=== PATIENT | male | born 1970 | race Caucasian/White ===

== ENCOUNTER 2017-09-09 09:56 | Inpatient (IN) | payer OTHER ==
--- NOTE | 2017-09-09 10:28 | EDPHY ---
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 He has continued to have fever chills and myalgias over the past 48 hr worse today. Today symptoms are severe and associated with diarrhea and vomiting in addition to the nausea. Mild associated headache but no stiffness in his neck. No skin rash[place] did not have malaria prophylaxis, did have exposure to fresh water and insects. Today symptoms are not better with Tylenol last taken at 4:30 a.m.. REVIEW OF SYSTEMS: Eye: no change in vision, no pain with extraocular motion ENT: Very mild sore throat but no earache, no sinus pain. Cardiac: no chest pain or syncope Pulmonary: no cough or SOB Abdomen: HPI no abdominal pain Musculoskeletal: No leg swelling or neck stiffness Skin: no rash Neuro: HPI Constitutional: HPI : no urinary symptoms A comprehensive 10 point review of systems is otherwise negative aside from elements mentioned in the history of present illness. 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 Social history: Travel as outlined above. Primary care is [facility] General Appearance: Alert and conversant, cooperative. Eyes: No scleral icterus. Extraocular motion intact without severe pain on movement. ENT, Mouth: Normal mucous membranes. Dry mucous membranes. Respiratory: Normal respiratory effort, breath sounds equal, lungs are clear to auscultation. Cardiovascular: Regular rate and rhythm. Gastrointestinal: Abdomen is soft and non tender. Neurological: Alert, face symmetric, normal motor and sensory in extremities. Speech is fluent. Answers questions appropriately. Skin: Warm and dry, no rashes. Musculoskeletal: No neck stiffness with normal range of motion, no meningeal signs. Psychiatric: Not agitated. Emergency Department course/MDM: Differential broad includes but not limited to gastroenteritis, malaria, meningitis, dengue, typhoid, endocarditis. Normal saline 2 L IV, Zofran 4 mg IV, oral acetaminophen for fever. Malaria smear, CBC chemistry and liver function test, blood culture, telephone consultation with Infectious Disease. 1150: Labs reviewed: Platelet count 123, white blood cell count 10, hematocrit 40, sodium 133. Bilirubin 1.5 mostly unconjugated. Urine negative for infection and malaria smear pending at this time. Call is placed to Dr. Elizabeth Acevedo from Infectious Disease; 1202. 1205: Curtis to see patient in the ER, plan discussed with patient and family. 1256: preliminary malaria from lab is negative. 1410: Ceftriaxone 2 g IV and Levaquin [address] Acevedo. I think it is unlikely that he has meningitis or encephalitis. His did describe him as being delirious. His mental status appeared clear to me during the times I interviewed him. Smoking Status: Never smoked Constitutional: Initial Vital Signs Temperature (C) 39.4 C H 09/09/17 10:07 Heart Rate 134 H 09/09/17 10:07 Respiratory Rate 28 H 09/09/17 10:07 Blood Pressure 150/87 H 09/09/17 10:07 O2 Sat (%) 91 L 09/09/17 10:07 O2 Delivery Mode Room Air Allergies/Adverse Reactions: No Known Allergies Allergy (Unverified 09/09/17 10:06) Home Medications: Medication Instructions Recorded Acetaminophen [Tylenol 325mg (*)] 650 mg PO Q6 PRN 09/09/17 Aspirin [Aspirin 81mg (*)] 81 mg PO DAILY 09/09/17 Atorvastatin Calcium [Lipitor 40 40 mg PO DAILY 09/09/17 mg (*)] Ibuprofen [Motrin (*)] 200 mg PO Q6 PRN 09/09/17 Losartan Potassium [Cozaar 50 mg 50 mg PO DAILY 09/09/17 (*)] Metoprolol Succinate 50 mg PO HS 09/09/17 Medical Decision Making - Diagnostics Imaging Results: Imaging Impressions Chest X-Ray 09/09/17 12:57 Impression: Moderate underlying bronchitis. Mild atelectasis or early infiltrate right lower lobe. Minimal bilateral pleural effusion. Imaging: I viewed and interpreted images myself Differential Diagnosis: Differential extensive includes but not limited to UTI, pneumonia, meningitis, sepsis, acquired tropical disease. Consult/Admit Bed Type: [place] [id number] - Data Points Laboratory Results: Laboratory Results 09/09/17 10:20 09/09/17 10:20 09/09/17 09/09/17 09/09/17 13:44 11:25 10:20 WBC RBC Hgb Hct MCV MCH MCHC RDW Plt Count MPV Neut % (Auto) Lymph % (Auto) [place] % (Auto) Eos % (Auto) Baso % (Auto) Nucleat RBC Rel Count Absolute Neuts (auto) Absolute Lymphs (auto) Absolute Monos (auto) Absolute Eos (auto) Absolute Basos (auto) Absolute Nucleated RBC Immature Gran % Immature Gran # Platelet Estimate Sodium Potassium Chloride Carbon Dioxide Anion Gap BUN Creatinine Estimated GFR Glucose Calcium Total Bilirubin Conjugated Bilirubin Unconjugated Bilirubin AST ALT Alkaline Phosphatase Total Protein Albumin Urine Color YELLOW Urine Appearance CLEAR Urine pH 6.0 (5.0-7.5) Ur Specific [place] 1.017 (1.002-1.030) Urine Protein 1+ H (NEGATIVE) Urine Ketones NEGATIVE (NEGATIVE) Urine Blood 1+ H (NEGATIVE) Urine Nitrate NEGATIVE (NEGATIVE) Urine Bilirubin NEGATIVE (NEGATIVE) Urine Urobilinogen 2.0 EU H EU (0.2-1.0) Ur Leukocyte Esterase NEGATIVE (NEGATIVE) Urine RBC 1-3 /hpf /hpf (0-3) Urine WBC 1-3 /hpf /hpf (0-3) Ur Epithelial Cells NONE SEEN /lpf /lpf (NONE-1+) Urine Mucus TRACE /lpf /lpf (NONE-1+) Urine Glucose 1+ H (NEGATIVE) Dengue Fever IgG Ab Pending Dengue Fever IgM Ab Pending Dengue Fever Interp Pending Leptospira Antibody Pending Malaria Smear Pending Malaria Sm Path Review Pending Is Patient Pending [place] Region Travel Pending Z[place] Clin Signs/Symp Pending Zika Virus IgM Ab Pending Miscellaneous Test Pending 09/09/17 09/09/17 10:20 10:20 WBC 10.21 10^3/uL H 10^3/uL (3.80-9.50) RBC 4.62 10^6/uL 10^6/uL (4.40-6.38) Hgb 14.2 g/dL g/dL (13.7-17.5) Hct 40.8 % % (40.0-51.0) MCV 88.3 fL fL (81.5-99.8) MCH 30.7 pg pg (27.9-34.1) MCHC 34.8 g/dL g/dL (32.4-36.7) RDW 12.7 % % (11.5-15.2) Plt Count 123 10^3/uL L 10^3/uL (150-400) MPV 10.9 fL fL (8.7-11.7) Neut % (Auto) 97.4 % H % (39.3-74.2) Lymph % (Auto) 1.5 % L % (15.0-45.0) [place] % (Auto) 0.5 % L % (4.5-13.0) Eos % (Auto) 0.0 % L % (0.6-7.6) Baso % (Auto) 0.2 % L % (0.3-1.7) Nucleat RBC Rel Count 0.0 % % (0.0-0.2) Absolute Neuts (auto) 9.95 10^3/uL H 10^3/uL (1.70-6.50) Absolute Lymphs (auto) 0.15 10^3/uL L 10^3/uL (1.00-3.00) Absolute Monos (auto) 0.05 10^3/uL L 10^3/uL (0.30-0.80) Absolute Eos (auto) 0.00 10^3/uL L 10^3/uL (0.03-0.40) Absolute Basos (auto) 0.02 10^3/uL 10^3/uL (0.02-0.10) Absolute Nucleated RBC 0.00 10^3/uL 10^3/uL (0-0.01) Immature Gran % 0.4 % % (0.0-1.1) Immature Gran # 0.04 10^3/uL 10^3/uL (0.00-0.10) Platelet Estimate TNP Sodium 133 mEq/L L mEq/L (135-145) Potassium 3.6 mEq/L mEq/L (3.3-5.0) Chloride 95 mEq/L L mEq/L (97-110) Carbon Dioxide 23 mEq/l mEq/l (22-31) Anion Gap 15 mEq/L mEq/L (8-16) BUN 14 mg/dL mg/dL (7-23) Creatinine 0.9 mg/dL mg/dL (0.7-1.3) Estimated GFR > 60 Glucose 166 mg/dL H mg/dL (70-100) Calcium 9.1 mg/dL mg/dL (8.5-10.4) Total Bilirubin 1.5 mg/dL H mg/dL (0.1-1.4) Conjugated Bilirubin 0.5 mg/dL mg/dL (0.0-0.5) Unconjugated Bilirubin 1.0 mg/dL mg/dL (0.0-1.1) AST 31 IU/L IU/L (17-59) ALT 48 IU/L IU/L (21-72) Alkaline Phosphatase 59 IU/L IU/L (38-126) Total Protein 7.0 g/dL g/dL (6.3-8.2) Albumin 3.9 g/dL g/dL (3.5-5.0) Urine Color Urine Appearance Urine pH Ur Specific [place] Urine Protein Urine Ketones Urine Blood Urine Nitrate Urine Bilirubin Urine Urobilinogen Ur Leukocyte Esterase Urine RBC Urine WBC Ur Epithelial Cells Urine Mucus Urine Glucose Dengue Fever IgG Ab Dengue Fever IgM Ab Dengue Fever Interp Leptospira Antibody Malaria Smear Malaria Sm Path Review Is Patient Zika Region Travel Zika Clin Signs/Symp Zika Virus IgM Ab Miscellaneous Test Medications Given: Levofloxacin/Dextrose (Levaquin 750 Mg (Premix)) 150 mls @ 100 mls/hr IV EDNOW ONE PRN Reason: Protocol Stop: 09/09/17 15:19 Last Admin: 09/09/17 14:07 Dose: 150 mls Discontinued Medications Acetaminophen (Tylenol) 650 mg PO EDNOW ONE Stop: 09/09/17 10:44 Last Admin: 09/09/17 10:50 Dose: 650 mg Sodium Chloride (Ns) 1,000 mls @ 0 mls/hr IV EDNOW ONE; Wide Open PRN Reason: Protocol Stop: 09/09/17 10:44 Last Admin: 09/09/17 10:49 Dose: 1,000 mls Sodium Chloride (Ns) 1,000 mls @ 0 mls/hr IV EDNOW ONE; Wide Open PRN Reason: Protocol Stop: 09/09/17 10:44 Last Admin: 09/09/17 10:50 Dose: 1,000 mls Ondansetron HCl (Zofran) 4 mg IVP EDNOW ONE Stop: 09/09/17 10:44 Last Admin: 09/09/17 10:50 Dose: 4 mg Departure - Departure Disposition: [facility] In[facility] Acute Clinical Impression: Fever Qualifiers: Fever type: unspecified Qualified Code(s): R50.9 - Fever, unspecified Condition: Good
[2017-09-09] MEDS ORDERED: ACETAMINOPHEN 325 MG TAB PO ONE (10:43)
[2017-09-09] MEDS ORDERED: ONDANSETRON 4 MG/2 ML VIAL IVP ONE (10:43)
[2017-09-09] MEDS ORDERED: NS 1,000 ML IV ONE ×2 (10:43)
[2017-09-09 11:39] LABS: PLATELET COUNT 123 10^3/uL (150-400)
[2017-09-09] MEDS ORDERED: ONDANSETRON 4 MG/2 ML VIAL IVP PRN (13:53)
[2017-09-09] MEDS ORDERED: ONDANSETRON DISINTEGRATING 4 MG TAB PO PRN (13:53)
[2017-09-09] MEDS ORDERED: IBUPROFEN 200 MG TAB PO PRN (14:31)
[2017-09-09] MEDS ORDERED: LORazepam 2 MG/ML INJ IVP PRN (14:42)
[2017-09-09] MEDS ORDERED: ACETAMINOPHEN 325 MG TAB PO PRN (14:42)
[2017-09-09] MEDS ORDERED: LORazepam 0.5 MG TAB PO PRN (14:42)
[2017-09-09] MEDS ORDERED: PROMETHAZINE HCL 25 MG/ML INJ IVP PRN (14:42)
[2017-09-09] MEDS ORDERED: DOXYCYCLINE INJ 100 MG in NS 250 ML IV SCH (15:45)
--- NOTE | 2017-09-09 16:23 | GCON ---
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 HISTORY OF PRESENT ILLNESS: The patient is a 46-year-old, white male with a past medical history inc luding aortic valve replaced in 2009, secondary to endocarditis. He also has a congenitally abnormal aortic valve. 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 On his way back a few days ago, he be emmanuelle noticing increasing fevers, as well as chills. This progressed to fever, chills, and myalgia. Christ agarwal came and sought medical attention. He has taken Tylenol without much improvement. In discussion w ith the patient, he denies any cough or production of sputum. There was no chest pain, pleuritic-typ e chest pain, or angina equivalent. There is no abdominal pain. REVIEW OF SYSTEMS: 10-point review of systems performed is negative with the exception of what is li susan in HPI. PAST MEDICAL HISTORY: Significant for congenital aortic valve and endocarditis. PAST SURGICAL HISTORY: Aortic valve replaced in 2009. SOCIAL HISTORY: No history of tobacco use. Infrequent alcohol use. 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 He is , has excellent family support. FAMILY HISTORY: Noncontributory. MEDICATIONS: Include Tylenol. PHYSICAL EXAMINATION: VITAL SIGNS: Blood pressure is 131/90, pulse is 145, respirations are 36, tem perature 39.4, oxygen saturation 92% on 2 L. GENERAL: He is a well-developed, well-nourished, 46-ye ar-old, white male who is in mild distress. HEENT: Eyes are PERRLA, EOMI. Throat shows no erythema or tonsillar hypertrophy. NECK: Supple. No cervical adenopathy. HEART: Regular rate and rhythm without murmurs, rubs, gallops. LUNGS: Few bibasilar crackles, but no wheeze. ABDOMEN: Soft, nont norah. Bowel sounds are present. EXTREMITIES: No clubbing, cyanosis, or edema. LABORATORY/IMAGING: White count 10.2, hemoglobin 14, hematocrit 40, platelet count is 123. Sodium 1 33, potassium 3.6, chloride 95, CO2 is 23, BUN 14, creatinine 0.9, glucose is 166. Urinalysis is neg ative. Serologies are pending. Chest x-ray shows some evidence of bronchitis and possible early right lower lobe infiltrate. IMPRESSION: 1. Fever and tachycardia, etiology of which is unclear. It is concerning that he is traveled recentl y to [facility]. 2. Mild acute respiratory failure. 3. History of aortic valve replacement in 2009. RECOMMENDATIONS: 1. Agree with panculture. 2. Antibiotics per Infectious Disease. 3. Will check an echocardiogram. 4. Aggressive fluid replacement. 5. DVT and PE prophylaxis. 6. Stress ulcer prophylaxis. /[id number]/MODL
--- NOTE | 2017-09-09 17:25 | ECHO ---
[email or web address] [address] [address] Main: [phone] Fax: Transthoracic Echocardiogram Name: DELMIS LOWERY MR#: [id number] Study Date: 09/09/2017 Study Time: 04:02 PM Date of : 1970 Age: 46 year(s) Height: 172.7 cm (68 in.) Weight: 86.18 kg (190 lb.) BSA: 2 m2 Gender: Male Examination: Echo Indication: Fever/AVR 2009 Image Quality: Contrast: Requested by: Ilir Berry BP: 127 mmHg/87 mmHg Heart Rate: Rhythm: Indication: Fever/AVR 2009 Procedure Staff Motor Equipment Commanding Officer: Mandie Gonzales RDCS Reading Physician: Hema Muñoz MD Requesting Provider: Conclusions: Normal size left ventricle. Global hypercontractility of the left ventricle. The ejection fraction is estimated to be 70-75 %. Mild mitral valve regurgitation is present. The aortic valve is a bioprosthesis. Mild tricuspid regurgitation is present. Mild to moderate pulmonic valve regurgitation. Suggest ROM if clinically indicated to further eval cardiac valves.. Measurements: Chambers Valvular Assessment AV/MV Valvular Assessment TV/PV Normal Normal Normal Name Value Range Name Value Range Name Value Range IVSd (2D): 1.5 cm (0.6 cm-1.1 AV Vmax: 1.60 m/s (1 m/s-1.7 cm) m/s) LVDd (2D): 4.5 cm (4.2 cm-5.9 AV meanP mmHg ( - ) cm) MV E Vmax: 1.77 m/s ( - ) LVDs (2D): 3.3 cm (2.1 cm-4 cm) LVPWd (2D): 1.1 cm (0.6 cm-1 cm) LVEF (2D): 50 (>=54 %) EF Range: 70-75 % Continued Measurements: Chambers Valvular Assessment AV/MV Name Value Name Value LADs Lon.0 cm MV E' Septal: 0.10 m/s Patient: DELMIS LOWERY Study Date: 09/09/2017 Page 1 of 2 04:02 PM LA Area: 22.6 cm2 MV E/E' Septal: 17.20 MV E/E' Lateral: 21.40 Additional Vessels Name Value Ao Ascendin.2 cm Findings: Left Ventricle: Normal size left ventricle. No LV hypertrophy. Global hypercontractility of the left ventricle. The ejection fraction is estimated to be 70-75 %. No regional wall motion abnormality. Right Ventricle: Normal size right ventricle. Left Atrium: The left atrium is normal in size. Right Atrium: The right atrium is normal in size. Possible Chiari's network in right atrium. Mitral Valve: The mitral valve is normal in appearance and function. Mild mitral valve regurgitation is present. Aortic Valve: The aortic valve is a bioprosthesis. AV max PG is 11mmHG. AV mean PG is 6mmHG.. Tricuspid Valve: The tricuspid valve is normal in appearance and function. Mild tricuspid regurgitation is present. Pulmonic Valve: The pulmonic valve is normal in appearance and function. Mild to moderate pulmonic valve regurgitation. Aorta: The aorta is normal. Pericardium: No pericardial effusion. Exam Comments: Suggest ROM if clinically indicated to further eval cardiac valves.. (No Signature Object) Patient: DELMIS LOWERY Study Date: 09/09/2017 Page 2 of 2 04:02 PM [id number]
--- NOTE | 2017-09-09 17:42 | PDGENHP ---
History and Physical - Chief Complaint fever, body aches, confusion - History of Present Illness 46 yo M with PMH of congenitally abnormal aortic valve and endocarditis requiring AVR presenting with c/o fever, body aches, TROY and confusion. 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 he notes that on dion flight home he began developing fevers, chills and body aches. This did not improve with tylenol and his noted today that he also seemed confused and anxious, slow to answer questions. He denies cough or sob, he has not had any n/v/diarrhea. He has not had rash or urinary complaints. He did have exposure to mosquitos and fresh water while in [facility]. History Information - Allergies/Home Medication List Allergies/Adverse Reactions: No Known Allergies Allergy (Unverified 09/09/17 10:06) Home Medications: Acetaminophen [Tylenol 325mg (*)] 650 mg PO Q6 PRN 09/09/17 [Last Taken 09/09/17 ] Aspirin [Aspirin 81mg (*)] 81 mg PO DAILY 09/09/17 [Last Taken 09/09/17] Atorvastatin Calcium [Lipitor 40 mg (*)] 40 mg PO DAILY 09/09/17 [Last Taken ] Ibuprofen [Motrin (*)] 200 mg PO Q6 PRN 09/09/17 [Last Taken 09/09/17] Losartan Potassium [Cozaar 50 mg (*)] 50 mg PO DAILY 09/09/17 [Last Taken ] Metoprolol Succinate 50 mg PO HS 09/09/17 [Last Taken 09/08/17] I have personally reviewed and updated: family history, medical history, social history, surgical history - Past Medical History hypertension, hyperlipidemia Additional medical history: endocarditis and congenital valvular heart disease - Surgical History Additional surgical history: aortic valve replacement - Family History Positive for: non-pertinent - Social History Smoking Status: Never smoked Alcohol Use: Occasionally Drug Use: None Review of Systems Review of Systems: ROS: 10pt was reviewed & negative except for what was stated in HPI & below Physical Exam Physical Exam: Temp Pulse Resp BP Pulse Ox 37.9 C 145 H 47 H 130/91 H 96 09/09/17 16:22 09/09/17 17:00 09/09/17 17:00 09/09/17 17:00 09/09/17 17:00 O2 (L/minute) 2 Constitutional: appears nourished, uncomfortable Eyes: PERRL, anicteric sclera Ears, Nose, Mouth, Throat: moist mucous membranes, hearing normal Cardiovascular: systolic murmur, tachycardia Respiratory: no respiratory distress, no rales or rhonchi Gastrointestinal: normoactive bowel sounds, soft, non-tender abdomen Genitourinary: no bladder tenderness Skin: warm, normal color Musculoskeletal: full muscle strength, no muscle tenderness Neurologic: AAOx3 Psychiatric: encephalopathic, anxious Lab Data & Imaging Review 09/09/17 10:20 09/09/17 10:20 WBC 10.21 10^3/uL (3.80-9.50) H 09/09/17 10:20 RBC 4.62 10^6/uL (4.40-6.38) 09/09/17 10:20 Hgb 14.2 g/dL (13.7-17.5) 09/09/17 10:20 Hct 40.8 % (40.0-51.0) 09/09/17 10:20 MCV 88.3 fL (81.5-99.8) 09/09/17 10:20 MCH 30.7 pg (27.9-34.1) 09/09/17 10:20 MCHC 34.8 g/dL (32.4-36.7) 09/09/17 10:20 RDW 12.7 % (11.5-15.2) 09/09/17 10:20 Plt Count 123 10^3/uL (150-400) L 09/09/17 10:20 MPV 10.9 fL (8.7-11.7) 09/09/17 10:20 Neut % (Auto) 97.4 % (39.3-74.2) H 09/09/17 10:20 Lymph % (Auto) 1.5 % (15.0-45.0) L 09/09/17 10:20 [place] % (Auto) 0.5 % (4.5-13.0) L 09/09/17 10:20 Eos % (Auto) 0.0 % (0.6-7.6) L 09/09/17 10:20 Baso % (Auto) 0.2 % (0.3-1.7) L 09/09/17 10:20 Nucleat RBC Rel Count 0.0 % (0.0-0.2) 09/09/17 10:20 Absolute Neuts (auto) 9.95 10^3/uL (1.70-6.50) H 09/09/17 10:20 Absolute Lymphs (auto) 0.15 10^3/uL (1.00-3.00) L 09/09/17 10:20 Absolute Monos (auto) 0.05 10^3/uL (0.30-0.80) L 09/09/17 10:20 Absolute Eos (auto) 0.00 10^3/uL (0.03-0.40) L 09/09/17 10:20 Absolute Basos (auto) 0.02 10^3/uL (0.02-0.10) 09/09/17 10:20 Absolute Nucleated RBC 0.00 10^3/uL (0-0.01) 09/09/17 10:20 Immature Gran % 0.4 % (0.0-1.1) 09/09/17 10:20 Immature Gran # 0.04 10^3/uL (0.00-0.10) 09/09/17 10:20 Platelet Estimate TNP 09/09/17 10:20 VBG Lactic Acid 1.6 mmol/L (0.7-2.1) 09/09/17 14:00 Sodium 133 mEq/L (135-145) L 09/09/17 10:20 Potassium 3.6 mEq/L (3.3-5.0) 09/09/17 10:20 Chloride 95 mEq/L (97-110) L 09/09/17 10:20 Carbon Dioxide 23 mEq/l (22-31) 09/09/17 10:20 Anion Gap 15 mEq/L (8-16) 09/09/17 10:20 BUN 14 mg/dL (7-23) 09/09/17 10:20 Creatinine 0.9 mg/dL (0.7-1.3) 09/09/17 10:20 Estimated GFR > 60 09/09/17 10:20 Glucose 166 mg/dL (70-100) H 09/09/17 10:20 Calcium 9.1 mg/dL (8.5-10.4) 09/09/17 10:20 Total Bilirubin 1.5 mg/dL (0.1-1.4) H 09/09/17 10:20 Conjugated Bilirubin 0.5 mg/dL (0.0-0.5) 09/09/17 10:20 Unconjugated Bilirubin 1.0 mg/dL (0.0-1.1) 09/09/17 10:20 AST 31 IU/L (17-59) 09/09/17 10:20 ALT 48 IU/L (21-72) 09/09/17 10:20 Alkaline Phosphatase 59 IU/L (38-126) 09/09/17 10:20 Total Protein 7.0 g/dL (6.3-8.2) 09/09/17 10:20 Albumin 3.9 g/dL (3.5-5.0) 09/09/17 10:20 Urine Color YELLOW 09/09/17 11:25 Urine Appearance CLEAR 09/09/17 11:25 Urine pH 6.0 (5.0-7.5) 09/09/17 11:25 Ur Specific [place] 1.017 (1.002-1.030) 09/09/17 11:25 Urine Protein 1+ (NEGATIVE) H 09/09/17 11:25 Urine Ketones NEGATIVE (NEGATIVE) 09/09/17 11:25 Urine Blood 1+ (NEGATIVE) H 09/09/17 11:25 Urine Nitrate NEGATIVE (NEGATIVE) 09/09/17 11:25 Urine Bilirubin NEGATIVE (NEGATIVE) 09/09/17 11:25 Urine Urobilinogen 2.0 EU (0.2-1.0) H 09/09/17 11:25 Ur Leukocyte Esterase NEGATIVE (NEGATIVE) 09/09/17 11:25 Urine RBC 1-3 /hpf (0-3) 09/09/17 11:25 Urine WBC 1-3 /hpf (0-3) 09/09/17 11:25 Ur Epithelial Cells NONE SEEN /lpf (NONE-1+) 09/09/17 11:25 Urine Mucus TRACE /lpf (NONE-1+) 09/09/17 11:25 Urine Glucose 1+ (NEGATIVE) H 09/09/17 11:25 Visualized and Interpreted Chest x-ray results: Yes Chest X-Ray results: infiltrate (rll versus atlectasis), effusion (slight bll) EKG additional interpertation: tele noted with ST Assessment & Plan Assessment: Fever (Acute) 46 yo M with hx of htn, hld, endocarditis s/p AVR admitted with fever/sepsis following travel to [facility] # sepsis: meeting SIRS criteria with fever, tachcardia, tachypnea, mid elevated WBC. Source unclear but concerns for tropical mosquito borne illnesses and appreciate ID input--viral studies including Dengue, Zika pending. Resp PCR panel negative. Leptospira, legionella, blood cultures and malaria smear pending. HD stable though tachycardic and monitoring in IcU. # pneumonia: RLL infiltrate and small bilateral pleural effusion, started on levofloxacin with w/u pending as above # acute encephalopathy: patient having difficulty answering questions but when he does he is appropriate, he feels this is largely driven by anxiety. Does not have clear meningeal signs and other than confusion only c/o TROY concerning for meningitis. Will discuss with ID but low threshold for LP and empiric tx for meningitis #hx of endocarditis/AVR: echo without clear vegetations, blood cultures pending #HTN, HLD: will start home meds when more stable # IP status, patient critically ill requiring close monitoring in ICU > 40 min of critical care time spent in care of this patient in eval/mgmt of above
[2017-09-09 18:14] LABS: MALARIAL PREP NONE SEEN (NONE SEEN)
[2017-09-09] MEDS ORDERED: ALTEPLASE 2 MG VIAL IVP PRN (18:38)
--- NOTE | 2017-09-09 18:40 | GCON ---
[f rep st] CONSULTATION INFECTIOUS DISEASE CONSULTATION DATE OF CONSULTATION: 09/09/2017 HISTORY OF PRESENT ILLNESS: This is a healthy 46-year-old male with a history of streptococcal aortic valve endocarditis in 2004, presenting as CVA, who had prolonged IV antibiotic therapy and subsequent aortic valve replacement in 2009 , who was in his usual state of health until 09/06/2017, when he returned from [facility]. The patient has been febrile and complaining of myalgias. He has a mild associated headache, congestion, sore throat. They were monitoring at home until patient became mildly confused, therefore, presented to the emergency room this morning. The patient travels to [facility] over 20 times yearly. They have a lodge there in which people stay and learn about the wildlife and [facility]. He was there for 1 week preceding 09/06/2017, and his last travel was 08/06 through 08/15/2017. He does endorse mosquito bites and does not sleep under mosquito nets nor does he take malaria prophylaxis. The nearest town is [place] in [facility]. He does have fresh water contact while there including: fresh water swimming pool, a nearby river, and showers are spring fed. Mild to moderate bitemporal headache is 6/10 - not as severe as headache when he had with his stroke was a 10/10. Patient does have contact with birds, last in May when he was tagging them without the use of gloves. He denies any animal bites. No tick exposure. Specifically, he denies joint swelling, rash, nausea, vomiting, and diarrhea. No known sick contacts. PAST MEDICAL AND SURGICAL HISTORY: Aortic valve replacement 2009. He has a bovine valve. No chronic anticoagulation. 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 Hyperlipidemia. SOCIAL HISTORY: He has 2 children, in 1st grade and preschool. He is originally from [place], [place], grew up in [place], [place]. He is . No tobacco. Minimal alcohol. No marijuana. FAMILY HISTORY: Positive for breast cancer in his sister. Colon cancer in his father and reportedly multiple people with aortic valve disease. REVIEW OF SYSTEMS: A complete 10-point review of systems was performed and is negative except as mentioned in the HPI. Denies GI symptoms PHYSICAL EXAM: VITAL SIGNS: The patient's blood pressure is 142/90, heart rate 135, respiratory rate 18, saturation 90% on room air, 96% on 2 L. Temperature is 39.4. GENERAL: This is a mildly distressed male, lying in bed, mildly tachypneic. HEENT: He has conjunctival injection bilaterally. Pupils are reactive. Extraocular muscles are intact. Facial cranial nerves are also intact. Dentition is excellent. Moist mucous membranes. No oral ulcerations. NECK: No lymphadenopathy. No meningismus. Full range of motion of the neck. CARDIOVASCULAR: Tachycardic. No murmurs detected. CHEST: Clear to auscultation bilaterally. ABDOMEN: Soft, nontender. Bowel sounds are present. EXTREMITIES: No clubbing, cyanosis, or edema. No joint swelling. No petechiae. No peripheral stigmata of endocarditis. SKIN: Full skin exam was performed without rashes noted. NEUROLOGICAL: His motor was intact bilaterally and he was following commands. He was disoriented to date and location. He did identify his appropriately. LABORATORY: White count 10.2, with 123 platelets, hematocrit of 40, 97% neutrophils. Creatinine 0.7. Total bilirubin 1.5, AST 31, ALT 48, albumin 3.9. Blood cultures are collected and are pending. Chest x-ray was personally reviewed by me and had a suggestion of an early infiltrate in the right lower lobe. Resp PCR panel negative. 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 Query if illness related to travel vs. AVR. Short incubation period would be more typical for viral illnesses, typhoid and leptospirosis would be consideration. Potential viral etiologies dengue, chikungunya, and Zika. Lack of rash and LFT abnormalities makes viral illness less likely. Quick onset of illness after travel seems less typical for malaria, but multiple rounds of travel to same are makes this a little more complicated. Elevated bilirubin and mild conjunctival injection/defecation and water exposure raises the possibility of leptospirosis. Notably, lack of GI symptoms certainly does not completely exclude typhoid. Bacterial meningitis was considered, but my impression was mild delirium at the time of my exam, but no meningismus, and only moderate headache and no focal neuro deficits, therefore, seemed less likely. Also could consider pneumonia, although his illness is fairly severe for a community-acquired pneumonia, fresh water exposure also brings up consideration of Legionella. The patient does have remote history of exposure to birds in May, which would be to long of incubation period for psittacosis. Finally he as AVR & h/o endocarditis therefore PVE is a possibility - tachycardia make appreciate of murmur difficult , but no peripheral stigmata of endocarditis. Resp panel PCR negative. DIAGNOSTIC EVALUATION: 1. Would send blood cultures, malaria smear, Zika, chikungunya, leptospirosis, and dengue antibody. 2. We will continue to monitor mental status and neurologic symptoms to assess the need for CT/lumbar puncture. At this point would hold off. This was extensively discussed with his at the bedside. 3. With water exposure, also would consider Legionella, and we will send Legionella urinary antigen. To cover for the above would include: 1. Levofloxacin 750 mg IV daily, which would cover community-acquired pneumonia , typhoid, Legionella. Further, would add doxycycline for coverage of leptospirosis 2. Obtain TTE. Will start vancomycin 1.25 gm IV q12 hours for empiric coverage for PVE until more info known 2. We will await additional diagnostics and adjust antibiotics appropriately. Time was 80 minutes with greater than 50% of the time spent with education and counseling regarding differential diagnosis of potential illness and planned antibiotic therapy. Care was coordinated with the emergency room doctor and hospitalist. Thank you for this consultation. We will continue to see the patient on a daily basis. /[id number]/MODL MTDD
[2017-09-09] MEDS: ACETAMINOPHEN 325 MG TAB PO PRN (19:05)
[2017-09-09] MEDS ORDERED: VANCOMYCIN 1.25 GM in NS 250 ML IV SCH (19:30)
--- NOTE | 2017-09-09 20:26 | PDRADPN ---
Radiology Procedure Note Date of Procedure: 09/09/17 Radiologist: Angelo Doran Anesthesia: Local (Specify) Pre-op Diagnosis: infection Post-op Diagnosis: same Indication: access for icu/abx Procedure: LUE DL PICC Finding(s): 46cm DL picc placed via patent basilic vein. ok to use. Inf/Abcess present in the surg proc area at time of surgery?: No EBL: Minimal Complications: none
[2017-09-09 21:06] LABS: PLATELET COUNT 105 10^3/uL (150-400)
[2017-09-09] MEDS: METOPROLOL SUCCINATE XR 50 MG TAB PO SCH (21:47)
--- NOTE | 2017-09-09 22:10 | PCMIDPN ---
Assessment/Plan: Sepsis due to MSSA bacteremia Blood cultures positive for MSSA --DC vancomycin --DC levofloxacin --DC doxycycline --Start Nafcillin 2gm IV q4h --Head CT --Patient will need ROM Discussed with hospitalist. Objective: Vital Signs Temp Pulse Resp BP Pulse Ox 39.2 C H 102 H 28 H 129/82 H 95 09/09/17 21:00 09/09/17 21:47 09/09/17 21:00 09/09/17 21:47 09/09/17 21:00 Microbiology 09/09/17 14:15 Respiratory Panel (PCR) - Final Nasal, Sinus - Swab No Organism Detected Laboratory Results 09/09/17 20:40 09/08/17 09/09/17 09/10/17 05:59 05:59 05:59 Intake Total 3848 Balance 3848 ICD10 Worksheet Patient Problems: Problems Problem Status Onset Fever Acute
[2017-09-09] MEDS: NAFCILLIN SODIUM 2 GM in D5W 100 ML IV SCH (22:20)
[2017-09-10] MEDS: ACETAMINOPHEN 325 MG TAB PO PRN ×3 (00:22→19:46)
[2017-09-10] MEDS: NAFCILLIN SODIUM 2 GM in D5W 100 ML IV SCH ×6 (01:47→21:22)
[2017-09-10] MEDS: NS 1,000 ML IV SCH ×2 (01:47→16:43)
[2017-09-10 05:37] LABS: PLATELET COUNT 103 10^3/uL (150-400)
[2017-09-10] MEDS: oxyCODONE IR 5 MG TAB PO PRN (06:47)
[2017-09-10] MEDS ORDERED: NS 1,000 ML IV ONE (08:27)
--- NOTE | 2017-09-10 08:57 | PDCARTEE ---
CAR AARON CAR AARON: pt for aaron to look for infectious source / asses vhd etc
[2017-09-10] MEDS ORDERED: PROPOFOL 200 MG/20 ML VIAL ONE (08:59)
[2017-09-10] MEDS ORDERED: ASPIRIN 81 MG CHEWABLE TAB PO SCH (09:00)
--- NOTE | 2017-09-10 09:22 | PDANEPAE ---
ANE History of Present Illness ROM S/P AVR 2009 ANE Past Medical History - Cardiovascular History Hx Hypertension: Yes Hx Arrhythmias: No Hx Chest Pain: No Hx Coronary Artery / Peripheral Vascular Disease: No Hx CHF / Valvular Disease: Yes Hx Palpitations: No - Pulmonary History Hx COPD: No Hx Asthma/Reactive Airway Disease: No Hx Recent Upper Respiratory Infection: Yes Hx Oxygen in Use at Home: No Hx Sleep Apnea: No - Endocrine History Hx Diabetes: No Hypothyroid: No Hyperthyroid: No Obesity: no - Renal History Hx Renal Disorders: No - Liver History Hx Hepatic Disorders: No - Chronic Pain History Chronic Pain: No - Surgical History Prior Surgeries: AVR ANE Review of Systems Review of systems is: negative Review of Systems: - Exercise capacity METS (RN): 4 METS ANE Patient History - Allergies Allergies/Adverse Reactions: No Known Allergies Allergy (Unverified 09/09/17 10:06) - Home Medications Home Medications: Acetaminophen [Tylenol 325mg (*)] 650 mg PO Q6 PRN 09/09/17 [Last Taken 09/09/17 ] Aspirin [Aspirin 81mg (*)] 81 mg PO DAILY 09/09/17 [Last Taken 09/09/17] Atorvastatin Calcium [Lipitor 40 mg (*)] 40 mg PO DAILY 09/09/17 [Last Taken ] Ibuprofen [Motrin (*)] 200 mg PO Q6 PRN 09/09/17 [Last Taken 09/09/17] Losartan Potassium [Cozaar 50 mg (*)] 50 mg PO DAILY 09/09/17 [Last Taken ] Metoprolol Succinate 50 mg PO HS 09/09/17 [Last Taken 09/08/17] - NPO status NPO Status: no food or drink >8 hours - Anes Hx Anes Hx: no prior problems - Smoking Hx Smoking Status: Never smoked - Alcohol Use Alcohol Use: Occasionally - Family Anes Hx Family Anes Hx: none ANE Labs/Vital Signs - Labs Result Diagrams: 09/10/17 04:45 09/10/17 04:45 - Vital Signs Blood Pressure: 114/75 Heart Rate: 100 Respiratory Rate: 25 O2 Sat (%): 99 Height: 172.72 cm Weight: 86.183 kg ANE Physical Exam - Airway Neck exam: FROM Mallampati Score: Class 2 Mouth exam: normal dental/mouth exam - Pulmonary Pulmonary: no rales or rhonchi, other (Resp rate 18 to 22) - Cardiovascular Cardiovascular: systolic murmur, tachycardia ANE Anesthesia Plan Anesthesia Plan: GA with mask Total IV Anesthesia: Yes
--- NOTE | 2017-09-10 09:57 | PDINTPN ---
[employer] Field Examiner Progress Note Assessment/Plan: Assessment: MSSA Bacteremia: Multiple blood cultures positive yesterday. Has received Levaquin, doxycycline, Vanco. Now on high-dose Nafcillin. WBC still high but down a bit. Temp down but still febrile. Headache: CT negative yesterday, but TROY is worse today. Could be due to sepsis , fluid resuscitation, caffeine withdrawal. Bacterial mycotic aneurism/abscess, meningitis possible, but has no focal symptoms or meningeal signs. Elevated Transaminases: Mildly elevated. No symptoms. Likely due to bacteremia. Hypokalemia: Mild Plan: ROM, then general diet. Probably proceed with MRI brain. Continue Nafcillin. Repeat blood cultures tomorrow. Replace K+, follow LFTs 09/10/17 11:18 Subjective: C/O increase in frontal TROY. No N/V, pain. Thirsty. Objective: Vital Signs Temp Pulse Resp BP Pulse Ox 38.1 C 100 25 H 114/75 99 09/10/17 07:00 09/10/17 09:43 09/10/17 09:43 09/10/17 09:43 09/10/17 09:43 Microbiology 09/09/17 14:15 Respiratory Panel (PCR) - Final Nasal, Sinus - Swab No Organism Detected Laboratory Results 09/10/17 04:45 09/10/17 04:45 09/09/17 09/10/17 09/11/17 05:59 05:59 05:59 Intake Total 5018 Output Total 1905 Balance 3113 Laboratory Tests 09/10/17 04:45 AST 75 H ALT 82 H CXR 09/09: Cardiac enlargement. Images reviewed by me. Physical Exam - Physical Exam General Appearance: alert, no apparent distress EENT: normal ENT inspection Neck: normal inspection Respiratory: normal breath sounds, No respiratory distress Cardiac/Chest: regular rate, rhythm, No edema Abdomen: normal bowel sounds, non-tender Skin: normal color, warm/dry Extremities: normal inspection Neuro/Psych: alert, normal mood/affect, oriented x 3, cognition abnormalities ( mild confusion, repeating questions.), No motor weakness ICD10 Worksheet Patient Problems: Problems Problem Status Onset Fever Acute
[2017-09-10] MEDS ORDERED: BENZOCAINE UNIT DOSE SPRAY HURRICAINE MM ONE ×2 (10:05→11:00)
[2017-09-10] MEDS ORDERED: NALOXONE HCL 0.4 MG/ML INJ IVP PRN (10:37)
--- NOTE | 2017-09-10 10:43 | POSTANESTH ---
Post Anesthetic Evaluation Cardiovascular Status: Similar to Pre-Op Cond Respiratory Status: Similar to Pre-op Cond. Level of Consciousness/Mental Status: Can Participate in Eval Pain Control: Adequate, Prn Tx Ordered Nausea/Vomiting Control: Adequate, Prn Tx Ordered Complications Possibly Related to Anesthesia: None Noted
[2017-09-10] MEDS ORDERED: PROTOCOL POTASSIUM 1 DOSE MISC PRN (10:55)
--- NOTE | 2017-09-10 11:17 | PDMN ---
Medical Necessity Medical necessity: MCG: M160, Sepsis and Other Febrile Illness, without Focal Infection A-3 days, pt presents w/ fever, tachycardic (145 BPM), tachypnea, acute encephalopathy, diagnosed w/ sepsis w/ blood cultures + MSSA bacteremia. Continue to monitor and treat, anticipate >2MN for IV antibx tx.
--- NOTE | 2017-09-10 12:01 | HOSPPROG ---
Hospitalist Progress Note Assessment/Plan: Assessment/Plan: 46 yo M with PMH of bioprosthetic AV s/p prior endocarditis and associated septic embolic cva presenting with sepsis 2/2 MSSA bacteremia # MSSA bacteremia: with no e/o vegetations by RMO and source unclear at this time. Started on nafcillin per ID. Will get surveillance cxs in am. # sepsis: in setting of above, concern for tropical illness initially given recent travel to [facility] but given above this is less likely. Remains intermittently febrile to 39 this am, wbc still elevated, HD stable, abx and cultures as above # headache: in setting of high fever but family concerned this could be recurrent cva given prior similar presentation, head CT negative but brain MRI ordered and pending # acute encephalopathy: metabolic in setting of high fever and sepsis, brain MRI pending to r/o other etiology # VHD: as above s/p bioprosthetic AV, repeat trans esophageal echo showing no valve dysfunction or vegetation # IP status patient remains critically ill requiring ICU care Care plan reviewed with DR. Vidal and [facility], > 40 min in critical care time spent in mgmt of above Subjective: this am patient continues to have TROY, remains confused, no other events Objective: Vital Signs Temp Pulse Resp BP Pulse Ox 38.2 C 86 24 H 120/63 96 09/10/17 10:00 09/10/17 11:00 09/10/17 11:00 09/10/17 11:00 09/10/17 11:00 Microbiology 09/09/17 14:15 Respiratory Panel (PCR) - Final Nasal, Sinus - Swab No Organism Detected Laboratory Results 09/10/17 04:45 09/09/17 09/10/17 09/11/17 05:59 05:59 05:59 Intake Total 5018 Output Total 1905 Balance 3113 somnolent arousable anciteric op clear rrr systolic murmur ctab soft nt nd no cce warm dry well perfused oriented ICD10 Worksheet Patient Problems: Problems Problem Status Onset Fever Acute
[2017-09-10] MEDS: ATORVASTATIN CALCIUM 40 MG TAB PO SCH (12:31)
[2017-09-10] MEDS: POTASSIUM Cl (KCl) 50 ML IV SCH ×5 (14:00→21:16)
[2017-09-10] MEDS: HYDROmorphONE/DILAUDID 1 MG/ML INJ IVP PRN (14:02)
--- NOTE | 2017-09-10 14:17 | PCMIDPN ---
Assessment/Plan: Assessment/Plan: * MSSA bacteremia with underlying bioprosthetic aortic valve: ROM does not show evidence of valve dysfunction or vegetation. No clear etiology for staphylococcal bacteremia although could be associated with preceding laceration (no clinical findings of laceration currently). Will repeat blood cultures tomorrow to assess for clearing of bacteremia. May need repeat echocardiogram over time to ensure no evidence of aortic valve involvement. Continue nafcillin pending repeat blood cultures and further clinical course. * Headache: Likely associated with bacteremia. No clinical evidence of meningitis with supple neck. Will proceed with MRI of brain to ensure no evidence of embolic phenomena given presentation with stroke at time of initial endocarditis diagnosis in the past. * Recent travel: Malaria smear is negative. Serologic studies pending for other potential infections associated with travel to [facility]. Time spent, greater than 35 min, of which greater than half was spent in education/counseling/coordination of care related to MSSA bacteremia in the setting of prosthetic valve endocarditis. Clinical findings and plan discussed with patient, family, Dr. Gary and ICU team including participation in ICU rounds. 09/10/17 14:17 Subjective: Patient complains of frontal headache which is 5/10 in severity. Clinical presentation and findings have been reviewed. Family also notes that patient fell while caving in [facility] approximately 6 days ago resulting in a laceration although patient does not have recollection for this event. [facility] does have batd and bat guano but patient did not have any direct contact with bats. Objective: Vital Signs Temp Pulse Resp BP Pulse Ox 37.1 C 89 22 H 100/88 H 95 09/10/17 14:00 09/10/17 14:00 09/10/17 14:00 09/10/17 14:00 09/10/17 14:00 Microbiology 09/09/17 14:15 Respiratory Panel (PCR) - Final Nasal, Sinus - Swab No Organism Detected Laboratory Results 09/10/17 04:45 09/10/17 12:30 09/09/17 09/10/17 09/11/17 05:59 05:59 05:59 Intake Total 5018 Output Total 1905 Balance 3113 Nafcillin # 1 Blood cultures 2/2 MSSA ROM without vegetation or significant valvular dysfunction Malaria smear x1 negative Leptospira antibody/dengue antibody/Zika antibody pending - Physical Exam General Appearance: alert, no apparent distress, non-toxic EENT: No scleral icterus, No thrush, No conjunctival petechiae Respiratory: lungs clear, No respiratory distress Neck: supple, No meningismus Cardiac/Chest: regular rate, rhythm, systolic murmur (2/6 left upper and right upper sternal borders) Extremities: No inflammation Abdomen: non-tender, No distended Skin: No rash, No embolic lesions Neuro/Psych: alert, No confused ICD10 Worksheet Patient Problems: Problems Problem Status Onset Fever Acute
--- NOTE | 2017-09-10 16:24 | ASMTCMCOM ---
CM Note CM Note Notes: Pt was admitted with fever, PNA and MSSA sepsis and is currently receiving IV Nafcillin. He has a hx of endocarditis, congenital valvular heart disease, HTN. 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 Spoke with pt's - she did not identify any needs at this time. He is s/p ROM this morning. CM will follow for any d/c needs. Date Signed: 09/10/2017 04:23 PM Electronically Signed By:BRITTANY Richey
[2017-09-10] MEDS ORDERED: ENOXAPARIN 40 MG/0.4 ML SYR SC SCH (17:15)
[2017-09-10] MEDS ORDERED: GADOBUTROL 10 ML VIAL IVP ONE (17:35)
[2017-09-10] MEDS: METOPROLOL SUCCINATE XR 50 MG TAB PO SCH (19:45)
--- NOTE | 2017-09-10 22:09 | HOSPPROG ---
Hospitalist Progress Note Assessment/Plan: Xcover note Called MRI result. Discussed result with Dr. Vidal. Although ROM negative, patient has embolic appearing multiple small CVA on MRI brain. There is some associated hemosiderin/micro-hemorrhage in a few locations. This suggests that there is an element on endocarditis despite negative ROM. 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 Vidal. Reviewed MRI with Dr. Brothers. Age of these lesions is anywhere from 6 hours to weeks. Micro-hemorrhages are tiny and do not require any intervention. Will hold ASA/Lovenox/NSAIDS. Discussed result with patient and family. They have an accepting doc at [facility] and desire transfer tonight. does not have bed tonight but will accept for transfer tomorrow am. Objective: Vital Signs Temp Pulse Resp BP Pulse Ox 38.9 C H 109 H 28 H 126/76 H 94 09/10/17 19:00 09/10/17 19:45 09/10/17 19:00 09/10/17 19:45 09/10/17 19:00 Laboratory Results 09/10/17 04:45 09/10/17 17:25 09/09/17 09/10/17 09/11/17 05:59 05:59 05:59 Intake Total 6348 4374 Output Total 0432 850 Balance 3113 1633 ICD10 Worksheet Patient Problems: Problems Problem Status Onset Fever Acute
[2017-09-11] MEDS: POTASSIUM Cl (KCl) 50 ML IV SCH ×5 (01:37→22:20)
[2017-09-11] MEDS: NAFCILLIN SODIUM 2 GM in D5W 100 ML IV SCH ×6 (01:40→21:18)
[2017-09-11] MEDS: oxyCODONE IR 5 MG TAB PO PRN ×3 (03:29→19:01)
[2017-09-11] MEDS: ACETAMINOPHEN 325 MG TAB PO PRN (05:39)
[2017-09-11 05:42] LABS: PLATELET COUNT 104 10^3/uL (150-400)
[2017-09-11] MEDS ORDERED: POTASSIUM Cl (KCl) 50 ML IV ONE (07:41)
[2017-09-11] MEDS: NS 1,000 ML IV SCH (07:57)
[2017-09-11] MEDS: ATORVASTATIN CALCIUM 40 MG TAB PO SCH (08:35)
[2017-09-11] MEDS: HYDROmorphONE/DILAUDID 1 MG/ML INJ IVP PRN ×2 (08:42→14:35)
[2017-09-11] MEDS ORDERED: GENTAMICIN SULFATE IV SCH (09:15)
[2017-09-11] MEDS ORDERED: D5W IV SCH (09:15)
--- NOTE | 2017-09-11 09:56 | PDINTPN ---
Pantomimist Progress Note Assessment/Plan: Assessment: MSSA Bacteremia: Presumed bloom to prosthetic valve endocarditis. Multiple blood cultures positive 09/09. Has received Levaquin, doxycycline, Vanco. Now on high- dose Nafcillin. Gent to be added this morning. WBC continues to trend down. Fever resolved. Headache: CT negative yesterday, but TROY is worse today. Could be due to encephalopathy from emboli, ICU delirium, fluid resuscitation, caffeine withdrawal. Elevated Transaminases: Mildly elevated. No symptoms. Likely due to bacteremia. Hypokalemia: Resolved Plan: ROM, then general diet. Probably proceed with MRI brain. Continue Nafcillin. Repeat blood cultures tomorrow. Replace K+, follow LFTs 09/10/17 11:18 09/11/17 09:58 Subjective: Slept OK, but restless. Disoriented today. Mild TROY. Appetite improved. Objective: Vital Signs Temp Pulse Resp BP Pulse Ox 37.3 C 72 26 H 110/84 H 95 09/11/17 08:00 09/11/17 09:00 09/11/17 09:00 09/11/17 09:00 09/11/17 09:00 Laboratory Results 09/11/17 05:30 09/11/17 05:30 09/10/17 09/11/17 09/12/17 05:59 05:59 05:59 Intake Total 5018 4678 Output Total 1905 2150 300 Balance 3113 2528 -300 Laboratory Tests 09/11/17 05:30 AST 65 H ALT 75 H MRI: Multiple acute cortical and subcortical small lesions c/w emboli. Images reviewed by me. Physical Exam - Physical Exam General Appearance: alert, no apparent distress EENT: normal ENT inspection Neck: normal inspection Respiratory: normal breath sounds, No respiratory distress Cardiac/Chest: regular rate, rhythm, No edema Abdomen: normal bowel sounds, non-tender Skin: normal color, warm/dry Extremities: normal inspection Neuro/Psych: alert, No oriented x 3 (disoriented to time, place) ICD10 Worksheet Patient Problems: Problems Problem Status Onset Fever Acute
--- NOTE | 2017-09-11 10:11 | NEUROPROG ---
Assessment: [id number] - Neurology Consult: - CC: Dr. Misty Llamas consulted neurology for suspected septic emboli. Results placed in EMR for her review. 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 ID was consulted and found MSSA bacteremia. Brain MRI w/ and w/o con on 09/10/17 showed multiple embolic appearing small strokes (some with possible signs of hemorrhage associated) raising concern for septic emboli from endocarditis. This prompted neurology consultation. Pt seen on 09/11/17. Neurologic exam showed disorientation to date but was otherwise nonfocal. I felt he likely had cardiac emboli from endocarditis causing septic emboli to the brain with some subtle hemorrhagic changes. Given bleeding risk I agree with stopping aspirin. 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 Pt will be transferring to [facility] soon. 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 Oriented x person but not place/date . concentration appears reduced . speech fluency/comprehension normal . memory appears reduced . fund of knowledge appear intact - Cranial Nerves: . II: PERRL, VFFTC . III/IV/: EOMI, no nystagmus, normal smooth pursuits, no Ptosis . V: facial sensation intact to LT . VII: face symmetric to eye closure and smile . VIII: hearing intact to conversation . IX/X: uvula raises symmetrically . XI: SCM 5/5 B/L strength . XII: tongue protrudes midline w/nl strength - Motor: . Tone: normal tone in all 4 extremity . 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 Differential includes watershed cerebral infarction and embolic infarcts. Posterior reversible encephalopathy syndrome less likely with the diffusion restriction and distribution. (I personally visualized the images on 09/11/17) - Assessment: 1. 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 Pt has prior history of aortic valve issues with endocarditis and stroke. I suspect his current infection has caused endocarditis. Treatment is treating underlying infection with antibiotics. Pts MRI did show some changes concerning for hemorrhagic transformation of stroke so I agree with holding aspirin at this time and monitoring for any hemorrhagic conversion. - Plan: - Agree with stopping aspirin given hemorrhagic changes seen on brain MRI - Agree with IV antibiotics for suspected endocarditis causing stroke - Pt will be transferring to [facility] so I will sign off at this time Objective: Vital Signs Temp Pulse Resp BP Pulse Ox 37.3 C 73 16 116/65 95 09/11/17 08:00 09/11/17 10:00 09/11/17 10:00 09/11/17 10:00 09/11/17 10:00 Laboratory Results 09/11/17 05:30 09/11/17 05:30 09/10/17 09/11/17 09/12/17 05:59 05:59 05:59 Intake Total 8260 7510 Output Total 5452 2150 300 Balance 3113 2528 -300 Allergies/Adverse Reactions: No Known Allergies Allergy (Unverified 09/09/17 10:06)
--- NOTE | 2017-09-11 10:25 | PCMIDPN ---
Assessment/Plan: Assessment/Plan: * MSSA prosthetic valve endocarditis: Patient with 1 major and 3 minor Chapman criteria for endocarditis given MRI findings consistent with septic MERCHANDISE EXAMINER emboli. ORM did not show evidence of valve dysfunction or vegetation however. Current guidelines recommend addition of gentamicin (1st 2 weeks) and rifampin in this setting. Will add gentamicin 3 mg/kg IV Q 24 hr to current nafcillin. Favor adding rifampin once has had at least 72 hr of antibiotic therapy or negative blood cultures to limit development of resistance. Patient's MSSA isolate is susceptible to both gentamicin and rifampin. Patient describes having ototoxicity with previous gentamicin exposure with initial bout of endocarditis. Will need baseline audiogram and continued followup of audiogram while on gentamicin. Potential risk of ototoxicity or nephrotoxicity with gentamicin discussed with patient and family. Repeat blood cultures are pending (09/11/2017) to assess for clearance of bacteremia although suspect these likely may remain positive at this point treatment course. Will need repeat echocardiogram over next several days to reassess prosthetic aortic valve. Of note, patient also has indwelling aortic graft. Will obtain baseline EKG to assess DE interval. Patient has indwelling PICC line which ultimately will need to be changed given this is in place in the setting of bacteremia. * Headache: MRI reviewed showing findings consistent with diffuse septic emboli. * Recent travel: Malaria smear is negative. Serologic studies pending for other potential infections associated with travel to [facility]. Time spent, greater than 35 min, of which greater than half was spent in education/counseling/coordination of care related to MSSA bacteremia in the setting of prosthetic valve endocarditis. Clinical findings and plan discussed with patient, family, and Dr. Cat. 09/10/17 14:17 09/11/17 10:15 09/11/17 10:27 Subjective: Patient complains of persistent headache. Notes small lesion over right palm which is nontender. Objective: Vital Signs Temp Pulse Resp BP Pulse Ox 37.3 C 73 16 116/65 95 09/11/17 08:00 09/11/17 10:00 09/11/17 10:00 09/11/17 10:00 09/11/17 10:00 Laboratory Results 09/11/17 05:30 09/11/17 05:30 09/10/17 09/11/17 09/12/17 05:59 05:59 05:59 Intake Total 1751 4660 Output Total 1905 2150 300 Balance 3113 2528 -300 Nafcillin # 2 Blood cultures 09/09/2017 2/2 sets MSSA susceptible to gentamicin rifampin Blood cultures 09/11/2017 pending MRI of brain reviewed showing multiple foci consistent with septic emboli T-max 39.1 degrees - Physical Exam General Appearance: alert, no apparent distress, non-toxic EENT: No scleral icterus, No thrush, No conjunctival petechiae Respiratory: lungs clear, No respiratory distress Cardiac/Chest: regular rate, rhythm, systolic murmur (2/6 left and right upper sternal borders without change) Extremities: No inflammation Abdomen: non-tender, distended (Mild) Skin: other (Small erythematous lesion on right palm potentially consistent with embolic phenomena (also fell recently)) ICD10 Worksheet Patient Problems: Problems Problem Status Onset Fever Acute
--- NOTE | 2017-09-11 10:27 | CPEKG ---
Heart Rate: 86 RR Interval: 698 P-R Interval: 164 QRSD Interval: 116 QT Interval: 396 QTC Interval: 474 P Frankenmuth: 5 QRS Frankenmuth: -20 T Wave Frankenmuth: 41 EKG Severity - ABNORMAL ECG - EKG Impression: SINUS RHYTHM EKG Impression: NONSPECIFIC INTRAVENTRICULAR CONDUCTION DELAY Electronically Signed By: Michael Abraham 11-Sep-2017 16:25:37
--- NOTE | 2017-09-11 15:30 | ASMTCMCOM ---
CM Note CM Note Notes: Pt will be an EMTALA transfer to [facility] when a bed is available. [facility] is arranged through [facility]. As of 3:30 today there are no SDU beds available. They will contact the ICU nurse's station when a bed opens up. All documentation is ready for d/c. Family informed. Date Signed: 09/11/2017 03:30 PM Electronically Signed By:BRITTANY Richey
[2017-09-11] MEDS ORDERED: FUROSEMIDE 20 MG/2 ML VIAL IVP ONE (16:10)
--- NOTE | 2017-09-11 16:31 | CPEKG ---
Heart Rate: 94 RR Interval: 638 P-R Interval: 156 QRSD Interval: 126 QT Interval: 376 QTC Interval: 471 P Post: 25 QRS Post: -12 T Wave Post: 65 EKG Severity - ABNORMAL ECG - EKG Impression: SINUS RHYTHM EKG Impression: NONSPECIFIC INTRAVENTRICULAR CONDUCTION DELAY Electronically Signed By: Michael Abraham 12-Sep-2017 10:59:25
[2017-09-11] MEDS ORDERED: POTASSIUM CL 10 MEQ TAB PO ONE (16:45)
[2017-09-11] MEDS: ACETAMINOPHEN 500 MG TAB PO SCH ×2 (16:45→21:59)
[2017-09-11] MEDS: MELATONIN 3 MG TAB PO SCH (21:02)
[2017-09-11] MEDS: METOPROLOL SUCCINATE XR 50 MG TAB PO SCH (21:02)
--- NOTE | 2017-09-12 00:20 | HOSPPROG ---
Hospitalist Progress Note Assessment/Plan: Assessment/Plan: 46 yo M with PMH of bioprosthetic AV s/p prior endocarditis and associated septic embolic cva presenting with sepsis 2/2 MSSA bacteremia # MSSA endocarditis: in setting of prosthetic valve and despite no e/o vegetation on ROM given septic emobli on MRI confirmed by Chapman's criteria. Plan to continue nafcillin with addition of gentamicin per ID. Rifampin addition in 72 hours or post negative blood cultures. No valve dysfunction noted on echo but will need to repeat in several days. PICC in place will also need to be changed. # septic emboli: noted on brain MRI and in setting of above # MSSA bacteremia: as above, f/u cultures pending # sepsis: improving and due to above # headache: with MRI showing septic emboli as above # acute encephalopathy: metabolic and related to above, overall improving # IP status patient remains high risk requiring ICU care Care plan reviewed with doctor Arellano at [facility], accepting transfer per family request, > 30 min in critical care time spent in mgmt of above Subjective: no significant overnight events, patients family requesting transfer to which is being arranged Objective: Vital Signs Temp Pulse Resp BP Pulse Ox 36.9 C 63 25 H 106/74 92 09/12/17 00:00 09/12/17 00:00 09/12/17 00:00 09/12/17 00:00 09/12/17 00:00 Laboratory Results 09/11/17 05:30 09/11/17 18:00 09/10/17 09/11/17 09/12/17 05:59 05:59 05:59 Intake Total 5013 4678 2501 Output Total 1905 2150 3500 Balance 3113 2528 -999 somnolent arousable anciteric op clear rrr systolic murmur ctab soft nt nd no cce warm dry well perfused oriented ICD10 Worksheet Patient Problems: Problems Problem Status Onset Fever Acute
[2017-09-12] MEDS: NAFCILLIN SODIUM 2 GM in D5W 100 ML IV SCH ×6 (01:39→21:53)
[2017-09-12 06:01] LABS: PLATELET COUNT 117 10^3/uL (150-400)
[2017-09-12] MEDS: POTASSIUM Cl (KCl) 50 ML IV SCH ×3 (08:15→10:13)
--- NOTE | 2017-09-12 09:07 | PDINTPN ---
County Manager Progress Note Assessment/Plan: Assessment: Prosthetic valve endocarditis due to MSSA: Multiple blood cultures positive ; 1/2 positive from 09/11 at 24 hours. ROM negative for abscess or valve dysfunction. Has received Levaquin, doxycycline, Vanco. Now on high-dose Nafcillin. Gent added 09/11. WBC up a bit, had mow-grade fever yesterday afternoon, none since. Embolic FINDING FASTENER lesions: Due to endocarditis Encehalopathy: Could be due to emboli, ICU delirium. Elevated Transaminases: Mildly elevated. No symptoms. Likely due to bacteremia. Hypokalemia: Resolved Plan: Continue current antibiotics. Likely add Rifampin tomorrow. Increase activity today, avoid interruptions at night. Repeat LFTs. Tx to [facility] when bed available per family request. 09/12/17 09:14 Subjective: Feels OK, still slept poorly, which he attributes to being in the hospital. Headache still there, improved, not particularly bothering him. Objective: Vital Signs Temp Pulse Resp BP Pulse Ox 37.4 C 65 28 H 135/96 H 95 09/12/17 08:00 09/12/17 08:00 09/12/17 08:00 09/12/17 08:00 09/12/17 08:00 Laboratory Results 09/12/17 05:45 09/12/17 05:45 09/11/17 09/12/17 09/13/17 05:59 05:59 05:59 Intake Total 4678 3351 Output Total 2150 4175 925 Balance 2528 -824 -925 Blood Cx 09/11: 1/2 (+) GPC Physical Exam - Physical Exam General Appearance: alert, no apparent distress EENT: normal ENT inspection Neck: normal inspection Respiratory: normal breath sounds Cardiac/Chest: regular rate, rhythm, edema Abdomen: normal bowel sounds, non-tender Skin: normal color, warm/dry Extremities: normal inspection Neuro/Psych: alert, oriented x 3, No normal mood/affect (flat; delayed response to questions.), No motor weakness ICD10 Worksheet Patient Problems: Problems Problem Status Onset Fever Acute
[2017-09-12] MEDS: GENTAMICIN SULFATE IV SCH ×2 (09:13→20:37)
[2017-09-12] MEDS: D5W IV SCH ×2 (09:13→20:37)
[2017-09-12] MEDS: ATORVASTATIN CALCIUM 40 MG TAB PO SCH (09:19)
[2017-09-12] MEDS: ACETAMINOPHEN 500 MG TAB PO SCH ×3 (09:19→22:21)
--- NOTE | 2017-09-12 09:24 | PCMIDPN ---
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 ROM without evidence of valve dysfunction or vegetation however. Continue nafcillin and gentamicin with plans for gentamicin trough tomorrow a.m. before 3rd dose at twice daily dosing interval. Plan to add rifampin starting tomorrow as he will have completed 3 days of nafcillin. TN interval normal on EKG. Will need repeat ROM at approximately 7 days post initial ROM to reassess for evidence of valvular dysfunction or vegetation. 1/2 sets of repeat blood culture showing GPCs in clusters which is not on anticipated at this point therapy. Plan repeat blood cultures in a.m. to assess for clearing of bacteremia on ongoing basis. * Headache: MRI reviewed showing findings consistent with diffuse septic emboli. No significant interval change. * Recent travel: Malaria smear is negative. Serologic studies pending for other potential infections associated with travel to [facility]. * Thrombocytopenia: Mild in likely associated with sepsis. 09/12/17 09:21 09/12/17 09:24 Subjective: Patient notes persistent headache although no worsening. Feels a little"woozy" . Some tenderness over base of toes bilaterally. Objective: Vital Signs Temp Pulse Resp BP Pulse Ox 37.4 C 65 28 H 135/96 H 95 09/12/17 08:00 09/12/17 08:00 09/12/17 08:00 09/12/17 08:00 09/12/17 08:00 Laboratory Results 09/12/17 05:45 09/12/17 05:45 09/11/17 09/12/17 09/13/17 05:59 05:59 05:59 Intake Total 4678 3351 Output Total 5696 0274 925 Balance 2528 -824 -925 Nafcillin # 3 Gentamicin # 2 Blood cultures 09/11/2017 1/2 sets GPCs in clusters Leptospira/dengue/Zika/Chikungunya antibody pending - Physical Exam General Appearance: alert, no apparent distress, non-toxic EENT: No scleral icterus, No thrush, No conjunctival petechiae Respiratory: lungs clear, No respiratory distress Cardiac/Chest: regular rate, rhythm, systolic murmur (2/6 throughout) Extremities: No inflammation Abdomen: non-tender, No distended Skin: embolic lesions (Right palm with small vasculitic appearing lesion below 5th digit without interval change; macular lesions suggestive of Janeway lesions over soles at base of several toes bilaterally) ICD10 Worksheet Patient Problems: Problems Problem Status Onset Fever Acute
[2017-09-12] MEDS: oxyCODONE IR 5 MG TAB PO PRN ×2 (10:47→21:56)
--- NOTE | 2017-09-12 11:03 | ASMTCMCOM ---
CARSON Note CM Note Notes: Contact information for [facility] is El[facility] and/or Makayla at [phone]. [facility] states they still do not have any beds today. We did ask for the family if 1 person can ride in the ambulance when patient is transported. This decision is usually made by the crew and depends on how the patient is doing on the day of transport. Makayla/[facility] fax number is [phone]. CM will follow. Date Signed: 09/12/2017 11:02 AM Electronically Signed By:Davina George LCSW
[2017-09-12] MEDS ORDERED: POTASSIUM Cl (KCl) 50 ML IV ONE ×2 (13:39→19:27)
--- NOTE | 2017-09-12 17:02 | HOSPPROG ---
Hospitalist Progress Note Assessment/Plan: Assessment/Plan: 46 yo M with PMH of bioprosthetic AV s/p prior endocarditis and associated septic embolic cva presenting with sepsis 2/2 MSSA bacteremia # MSSA endocarditis: in setting of prosthetic valve and despite no e/o vegetation on ROM given septic emobli on MRI as well as positive blood cultures confirmed by Chapman's criteria. Plan to continue nafcillin with addition of gentamicin per ID. Rifampin will be added in am. No valve dysfunction noted on echo but will need to repeat in several days. PICC in place will also need to be changed. # septic emboli: noted on brain MRI and in setting of above, no real neuro deficits appreciated # MSSA bacteremia: as above, cultures persistently positive from 09/09 and 09/11 # sepsis: improving and due to above # headache: with MRI showing septic emboli as above, headache is improving # acute encephalopathy: metabolic and related to above, overall improving and today patient is more interactive and appropriate # IP status patient remains high risk requiring ICU care Care plan reviewed with Dr. Cat Subjective: no significant overnight events, patient currently feeling a bit better though TROY is still intense and still lethargic, has not had much appetite Objective: Vital Signs Temp Pulse Resp BP Pulse Ox 37.8 C 81 26 H 122/67 H 97 09/12/17 16:00 09/12/17 16:00 09/12/17 16:00 09/12/17 16:00 09/12/17 16:00 Laboratory Results 09/12/17 05:45 09/12/17 12:15 09/11/17 09/12/17 09/13/17 05:59 05:59 05:59 Intake Total 4678 3351 Output Total 9358 4175 925 Balance 3818 -824 -925 somnolent easily arousable anciteric op clear rrr systolic murmur ctab soft nt nd no cce warm dry well perfused oriented ICD10 Worksheet Patient Problems: Problems Problem Status Onset Fever Acute
[2017-09-12] MEDS: METOPROLOL SUCCINATE XR 50 MG TAB PO SCH (20:38)
[2017-09-12] MEDS: MELATONIN 3 MG TAB PO SCH (20:38)
[2017-09-12 22:02] VITALS: BP 132/77
[2017-09-13] MEDS ORDERED: RIFAMPIN 300 MG CAP PO SCH (06:00)
--- NOTE | 2017-09-14 12:32 | ECHO ---
[email or web address] [address] [address] Main: [phone] Fax: Transesophageal Echocardiography Name: DELMIS LOWERY MR#: [id number] Study Date: 09/10/2017 Study Time: 10:00 AM Date of : 1970 Age: 46 year(s) Height: 172.7 cm (68 in.) Weight: 86.18 kg (190 lb.) BSA: 2 m2 Gender: Male Examination: ROM Indication: Aortic Valve Regurgitation Image Quality: Adequate Contrast: Requested by: Domo Gary Heart Rate: Rhythm: BP: 113 mmHg/72 mmHg Procedure Staff Sort Worker: lEisa Lopez [facility] [place] Reading Physician: Domo Gary MD Requesting Provider: ROM Exam Details Patient Consent: Risks, alternatives of procedure explained to patient, informed consent obtained. Conclusions: Normal size left ventricle. No LV hypertrophy. Normal global systolic LV function. The ejection fraction is visually estimated to be 55 %. The left atrial appendage is unilobular. Good color flow doppler in the left atrial appendage. Normal PW-Doppler flow pattern. No thrombus in left appendage. The mitral valve is normal in appearance and function. Mild mitral valve regurgitation is present. No mitral stenosis is present. The aortic valve is a bioprosthesis. Normal functioning aortic valve prosthesis. The prosthetic aortic valve is normal. No prosthesis regurgitation. There is no significant tricuspid valve regurgitation. No previous Measurements: Chambers Valvular Assessment AV/MV Valvular Assessment TV/PV Normal Normal Normal Name Value Range Name Value Range Name Value Range Visual EF: 55 % Patient: DELMIS LOWERY Study Date: 09/10/2017 Page 1 of 2 10:00 AM Additional Measurements: Findings: Left Ventricle: Normal size left ventricle. No LV hypertrophy. Normal global systolic LV function. The ejection fraction is visually estimated to be 55 %. No regional wall motion abnormality. Unable to assess diastolic dysfunction. Right Ventricle: Normal size right ventricle. Normal RV function. Left Atrium: The left atrium is normal in size. Left Atrial Appendage: The left atrial appendage is unilobular. Good color flow doppler in the left atrial appendage. Normal PW-Doppler flow pattern. No thrombus in left appendage. Right Atrium: The right atrium is normal in size. Mitral Valve: The mitral valve is normal in appearance and function. Mild mitral valve regurgitation is present. No mitral stenosis is present. Aortic Valve: The aortic valve is a bioprosthesis. Normal functioning aortic valve prosthesis. The prosthetic aortic valve is normal. No prosthesis regurgitation. Tricuspid Valve: The tricuspid valve is normal in appearance and function. There is no significant tricuspid valve regurgitation. Pulmonic Valve: The pulmonic valve is normal in appearance and function. There is no pulmonic regurgitation seen. Aorta: The aorta is normal. Pericardium: No pericardial effusion. l1n (No Signature Object) Patient: DELMIS LOWERY Study Date: 09/10/2017 Page 2 of 2 10:00 AM [id number]
== END 2017-09-12 23:49 | disposition short-term general hospital (02) | DRG 314 ==
LOC: INTOOBSV 13:51 → OBSVTOIN 13:53 → F2N 15:31
PROVIDERS: ADMIT Internal Medicine; ATTEND Internal Medicine
PROC: 02HV33Z Insertion of Infusion Device into Superior Vena Cava, Percutaneous Approach (ICD-10-PCS; 2017-09-09)
PROC: B246ZZ4 Ultrasonography of Right and Left Heart, Transesophageal (ICD-10-PCS; principal; 2017-09-10)
DX: T82.6XXA Infection and inflammatory reaction due to cardiac valve prosthesis, initial encounter (principal); A41.01 Sepsis due to Methicillin susceptible Staphylococcus aureus; G93.41 Metabolic encephalopathy; I76 Septic arterial embolism; I33.0 Acute and subacute infective endocarditis; I74.8 Embolism and thrombosis of other arteries; I63.8 Other cerebral infarction; I10 Essential (primary) hypertension; R51 Headache; E78.5 Hyperlipidemia, unspecified; Z95.2 Presence of prosthetic heart valve; Z86.79 Personal history of other diseases of the circulatory system; Z86.73 Personal history of transient ischemic attack (TIA), and cerebral infarction without residual deficits; Z75.1 Person awaiting admission to adequate facility elsewhere
CPT/HCPCS: 86720-90; 86790-90; 87449-90; 96374; 97116-GP; 97161-GP; 97530-GP; A9585; C1751; J0696; J1170; J1580; J1940; J1956; J2060; J2405; J2704; J3370; J3480